=== PATIENT | male | born 1990 | race Caucasian/White ===

== ENCOUNTER 2017-07-23 10:07 | Emergency (ER) | payer BC ==
[2017-07-23 10:13] VITALS: PULSE 81
--- NOTE | 2017-07-23 10:24 | CPEKG ---
Heart Rate: 88 RR Interval: 682 P-R Interval: 160 QRSD Interval: 84 QT Interval: 352 QTC Interval: 426 P Mora: 66 QRS Mora: 101 T Wave Mora: 40 EKG Severity - OTHERWISE NORMAL ECG - EKG Impression: SINUS RHYTHM EKG Impression: BORDERLINE RIGHT AXIS DEVIATION Electronically Signed By: Sg South 23-Jul-2017 10:26:40
[2017-07-23] MEDS ORDERED: NS 500 ML IV ONE (11:06)
--- NOTE | 2017-07-23 11:06 | EDPHY ---
General Narrative: CHIEF COMPLAINT: Chest pain, dizzy, lightheaded, headache HISTORY OF PRESENT ILLNESS: Patient complains of short duration of chest pain this morning that lasted several minutes on the way to work. No chest pain of any kind at this time. He associates this with occasional palpitations, mild headache, feeling woozy and lightheaded and dizzy at times. The symptoms wax and wane. They are intermittent. This morning was the only time he has had chest pain and this lasted for less than 2 minutes. It was described as a mild ache. No radiating pain. No diaphoresis. No shortness of breath. No recent travel or surgery. No trauma or injury. No neck pain or stiffness. No other associated complaints or modifying factors. REVIEW OF SYSTEMS: Ten systems reviewed and are negative unless otherwise noted in the HPI PCP: None. Made an appointment with a new physician in July. SPECIALISTS: None PAST MEDICAL HISTORY: None PAST SURGICAL HISTORY: Oral maxillofacial surgery due to over bite SOCIAL HISTORY: Nonsmoker. Very rare alcohol intake. Occasional marijuana use. Works in IT FAMILY HISTORY: Noncontributory EXAMINATION General Appearance: Alert, no distress Head: normocephalic, atraumatic Eyes: Pupils equal and round, no conjunctival pallor or injection ENT, Mouth: Mucous membranes moist. Uvula midline. Airway widely patent Neck: Normal inspection, supple, non-tender. Painless range of motion in all planes. Respiratory: Lungs are clear to auscultation. No wheezing, rhonchi or crackles Cardiovascular: Regular rate and rhythm. No murmur. Pulses intact distally. Symmetric radial DP pulses Gastrointestinal: Abdomen is soft and nontender Back: non-tender, no bony abnormalities Neurological: GCS 15 A&O, nonfocal, normal gait Skin: Warm and dry, no rash. No petechiae or purpura Extremities: Nontender, no pedal edema Psychiatric: Mood and affect normal DIFFERENTIAL DIAGNOSES: Including but not limited to paroxysmal PVCs, paroxysmal flutter, paroxysmal AFib, PSVT, ACS, dehydration, anxiety MDM: 11:05 a.m. Chest pain with some lightheaded/dizziness and feeling "woozy," that has resolved. Patient describes a likely paroxysmal PVC situation. He has no chest pain of any kind at this time. Vital signs are all within normal limits. EKG is unremarkable and been reviewed by Dr. South. Laboratory studies have been ordered. He is in no acute distress. 12:00 p.m. Laboratory studies are all negative including a negative troponin. EKG unremarkable. Chest x-ray clear. Asymptomatic at this time. No headache currently. The headache he describes I suspect is a tension headache. We discussed discharge home with follow-up with a new primary care physician and a referral to Cardiology for further workup. Suspect that he may be having the SVT or paroxysmal PVCs. I discussed this with Dr. South and he agrees. As he is asymptomatic at this time, we discharged home in stable condition with instructions to return should his symptoms return. He is comfortable this plan. I have answered all his questions. He is discharged in stable condition. EKG interpretation: Dr. South Sinus rhythm. No acute ischemia - History Smoking Status: Never smoked - Objective Vital Signs: Initial Vital Signs Temperature (C) 99.1 F 07/23/17 10:10 Heart Rate 81 07/23/17 10:10 Respiratory Rate 16 07/23/17 10:10 Blood Pressure 132/77 H 07/23/17 10:10 O2 Sat (%) 96 07/23/17 10:10 O2 Delivery Mode Room Air Allergies/Adverse Reactions: No Known Allergies Allergy (Unverified 07/23/17 10:09) Home Medications: Medication Instructions Recorded NK [No Known Home Meds] 07/23/17 Laboratory Results: Laboratory Results 07/23/17 10:23 07/23/17 10:23 Medications Given: Discontinued Medications Sodium Chloride (Ns) 500 mls @ 0 mls/hr IV EDNOW ONE; Wide Open PRN Reason: Protocol Stop: 07/23/17 11:07 Last Admin: 07/23/17 11:14 Dose: 500 mls Departure - Departure Disposition: Home, Routine, Self-Care Clinical Impression: Palpitations Chest pain Qualifiers: Chest pain type: unspecified Qualified Code(s): R07.9 - Chest pain, unspecified Condition: Good Instructions: Supraventricular Tachycardia (ED), Chest Pain (ED), Palpitations (ED) Additional Instructions: 1. Medications as discussed as needed 2. Follow up with the on-call physician, information has been provided 3. Follow up with the on-call carpenter, information has been provided 4. ED precautions as discussed Referrals: NONE *PRIMARY CARE P,. [Primary Care Provider] - As per Instructions Thom Mckeon MD [Medical Doctor] - As per Instructions Fidencio Kasper MD [Medical Doctor] - As per Instructions
[2017-07-23 11:16] LABS: % IMMATURE GRANULYOCYTES 0.2 % (0.0-1.1); ABSOLUTE IMMATURE GRANULOCYTES 0.01 10^3/uL (0.00-0.10); ADD DIFF? NO; ADD MORPH? NO; ADD SCAN? NO; ATYPICAL LYMPHOCYTE FLAG 0 (0-99); FRAGMENT RBC FLAG 0 (0-99); HEMATOCRIT 51.3 % (40.0-51.0); HEMOGLOBIN 18.6 g/dL (13.7-17.5); LEFT SHIFT FLG 0 (0-99); LIPEMIA HEMOLYSIS FLAG 90 (0-99); MEAN CELL HEMOGLOBIN CONCENTR. 36.3 g/dL (32.4-36.7); MEAN CELL VOLUME 88.1 fL (81.5-99.8); MEAN PLATELET VOLUME 10.8 fL (8.7-11.7); PLATELET CLUMPS FLAG 10 (0-99); PLATELET COUNT 227 10^3/uL (150-400); RED BLOOD CELL COUNT 5.82 10^6/uL (4.40-6.38); RED CELL DISTRIBUTION WIDTH 11.6 % (11.5-15.2)
[2017-07-23 11:21] LABS: ANION GAP 17 mEq/L (8-16); CALCIUM 10.7 mg/dL (8.5-10.4); CARBON DIOXIDE 26 mEq/l (22-31); CHLORIDE 102 mEq/L (97-110); GLOMERULAR FILTRATION RATE > 60; GLUCOSE 156 mg/dL (70-100); SODIUM 145 mEq/L (134-144)
[2017-07-23 11:26] LABS: INR 1.02 (0.83-1.16); PROTIME(PATIENT) 13.3 SEC (12.0-15.0)
[2017-07-23 11:27] LABS: APTT 29.2 SEC (23.0-38.0)
[2017-07-23 11:33] LABS: TROPONIN I < 0.012 ng/mL (0.000-0.034)
[2017-07-23 12:22] VITALS: BP 131/75; RESP 25; TEMP 99.5; O2SAT 97
== END 2017-07-23 12:21 | disposition home or self-care (01) ==
DX: R07.9 Chest pain, unspecified (principal); R00.2 Palpitations; E86.9 Volume depletion, unspecified

== ENCOUNTER → 2018-07-12 | Outpatient (CLI) | payer BC | LOC: FIMAGING 09:57 | PROVIDERS: ATTEND Nurse Practitioner Family | DX: R73.03 Prediabetes (principal); R10.9 Unspecified abdominal pain ==